=== PATIENT | male | born 1950 | race Caucasian/White ===

== ENCOUNTER 2017-05-31 13:55 | Emergency (ER) | payer BC ==
[~2017-05-31] VITALS: Ht 154.9 cm; Wt 113.6 kg
[~2017-05-31 13:55] MED LIST: DIOVAN HCT 25 M1 TA1 PO; NORVASC 5MG5 MG/TAB PO; SIMCOR 500 MG-21 TER PO
[2017-05-31 14:19] VITALS: TEMP 97.9
[2017-05-31] MEDS ORDERED: LASIX 20MG TABL20 MG PO (14:42)
[2017-05-31] MEDS ORDERED: DIOVAN HCT 25 M1 TA1 PO (14:43)
[2017-05-31] MEDS ORDERED: NORVASC 5MG5 MG/TAB PO (14:43)
[2017-05-31] MEDS ORDERED: ZOCOR 40MG40 MG PO (14:43)
[2017-05-31 15:14] LABS: BASO % 0.3 % (0.0-2.0); EOS % 0.1 % (0-4.0); GRAN # 5.3 (1.4-6.5); HEMATOCRIT 44.4 % (42.0-52.0); HEMOGLOBIN 15.6 g/dl (13.5-18.0); LYMPH # 1.4 (1.2-3.4); LYMPH % 17.3 % (20.0-51.0); MEAN CELL VOLUME 91 fl (80.0-100.0); MEAN CORPUSCULAR HEMOGLOBIN 32 pg (27.0-31.0); MEAN CORPUSCULAR HGB CONC 35 g/dl (33.0-37.0); MONO # 1.2 (0.1-0.6); MONO % 14.9 % (1.7-9.3); PLATELET COUNT 186 K/mm3 (130-400); RED BLOOD COUNT 4.89 M/mm3 (4.20-5.60); WHITE BLOOD COUNT 7.9 K/mm3 (4.8-10.8)
[2017-05-31 15:20] LABS: ADJUSTED CALCIUM 9.1 mg/dL (8.4-10.2); ALBUMIN 4.4 gm/dL (3.5-5.0); BILIRUBIN,TOTAL 0.6 mg/dL (0.0-1.0); C-REACTIVE PROTEIN 7.5 mg/dL (0.0-0.9); CALCIUM 9.4 mg/dL (8.4-10.2); TOTAL PROTEIN 7.5 gm/dL (6.4-8.2)
[2017-05-31 15:27] LABS: POTASSIUM 2.8 mmol/L (3.4-5.0)
[2017-05-31 15:33] LABS: COLLECTION METHOD CLEAN CATCH
[2017-05-31 15:41] LABS: INFLUENZA A NEGATIVE; INFLUENZA B NEGATIVE
[2017-05-31 15:44] LABS: MUCOUS Present /lpf; PH 7 (5-8); SQUAMOUS EPITHELIAL 0-2 /hpf; URINE APPEARANCE Cloudy; URINE BACTERIA Rare /hpf; URINE BILIRUBIN Negative (NEGATIVE); URINE BLOOD 1+ (NEGATIVE); URINE COLOR Yellow; URINE GLUCOSE Negative (NEGATIVE); URINE KETONE Negative (NEGATIVE); URINE LEUKOCYTE ESTERASE Negative (NEGATIVE); URINE PROTEIN(semi-quant) 2+ (NEGATIVE); URINE RBC 0-2 /hpf; URINE UROBILINOGEN Negative (NEGATIVE)
[2017-05-31 16:33] LABS: TROPONIN-I 0.013 ng/mL (0.000-0.034)
[2017-05-31 16:46] VITALS: BP 129/68; PULSE 54
== END 2017-05-31 16:46 | disposition home or self-care (01) ==
LOC: COL.ER 13:55
PROVIDERS: Family Medicine
DX: J11.1 Influenza due to unidentified influenza virus with other respiratory manifestations (principal); I95.9 Hypotension, unspecified; I10 Essential (primary) hypertension; E78.5 Hyperlipidemia, unspecified
CPT/HCPCS: J2405; J7030; Q9967